=== PATIENT | male | born 1945 | race Caucasian/White ===

== ENCOUNTER → 2018-04-02 | Outpatient (CLI) | payer MEDICARE ==
[2018-04-02 12:55] LABS: Albumin 4.2 g/dL (3.5-5.0); Calcium 10.1 mg/dL (8.4-10.2); Potassium 4.9 mmol/L (3.5-5.1); Total Bilirubin 0.7 mg/dL (0.2-1.3)
== END | disposition home or self-care (01) ==
LOC: LABWHC1 11:31
PROVIDERS: ATTEND Internal Medicine Clinical Cardiac Electrophysiology
DX: E78.2 Mixed hyperlipidemia (principal); E03.9 Hypothyroidism, unspecified
CPT/HCPCS: 36415; 80053; 80061; 84443

== ENCOUNTER → 2020-08-31 | Outpatient (CLI) | payer MEDICARE ==
--- NOTE | 2020-08-31 08:14 | MR ---
EXAMINATION TYPE: MR lumbar spine wo con DATE OF EXAM: 08/31/2020 COMPARISON: NONE HISTORY: Lumbar disc disorders with radiculopathy TECHNIQUE: Multiplanar, multisequence imaging of the lumbar spine is performed without IV contrast. FINDINGS: Sagittal images of the lumbar spine show vertebral body heights to appear satisfactory. Sca ttered small Schmorl nodes. Alignment is straightened. Multilevel disc desiccation. Mild disc space n arrowing L2-L3 level and L5-S1 level. Moderate disc space narrowing L3-L4 level. Kiua-[id number]-xgyawjwc mul tilevel anterior spurring The conus medullaris is normal in position and signal ending at L1-L2 disc space. Some heterogeneous bone uptake to endplate change and anterior L3-L4 level. Axial images show the T12-L1 and L1-L2 levels to appear within normal limits. Axial images at the L2-L3 level show [id number] broad disc bulge along with mild/moderate facet arthropathy and ligamentum flavum hypertrophy right greater than left. There is effacement of the an terior and the posterior lateral thecal sac. There is mild left-sided anterior inferior neural forami nal narrowing. Axial images at the L3-L4 level show mild broad disc bulge and mild facet arthropathy. Mild effacemen t of anterior thecal sac. Mild left greater than right anterior inferior neural foraminal narrowing. Axial images at the L4-L5 level show mild/moderate facet degenerative changes bilaterally. There is m ild/moderate broad disc bulge. Patent bilateral foramina. Spinal canal preserved. Axial images at L5-S1 level show mild/moderate facet degenerative changes bilaterally. There is mild/ moderate broad disc bulge. Spinal canal is preserved. Patent bilateral neural foramina. Paraspinal muscle bulk is maintained. Some cortical thinning is felt present in both kidneys. There a re some prominent but subcentimeter left paraaortic lymph nodes. There is suspected enlarged right co mmon iliac chain 1.3 x 1.1 cm lymph node axial image 1. IMPRESSION: Straightening of lumbar spine with multilevel degenerative changes greatest mid lumbar le vels as detailed above. Slightly enlarged right common iliac chain lymph node, consider contrast-enha nced CT abdomen and pelvis to further evaluate based on clinical correlation.
== END | disposition home or self-care (01) ==
LOC: RADMRIMAIN 07:21
PROVIDERS: ATTEND Family Medicine
DX: M47.26 Other spondylosis with radiculopathy, lumbar region (principal); R59.9 Enlarged lymph nodes, unspecified; M51.16 Intervertebral disc disorders with radiculopathy, lumbar region
CPT/HCPCS: 72148

== ENCOUNTER → 2020-09-07 | Outpatient (CLI) | payer MEDICARE ==
--- NOTE | 2020-09-07 15:22 | CT ---
EXAMINATION TYPE: CT abdomen pelvis w con DATE OF EXAM: 09/07/2020 COMPARISON: None HISTORY: Inguinal lymphadenopathy. History of bladder cancer. Patient complains of low back pain. CT DLP: 1844 mGycm CONTRAST: CT scan of the abdomen and pelvis is performed with Oral Contrast and with IV Contrast, patient injec lanre with 100 mL of Isovue M300. FINDINGS: LUNG BASES-: No visible nodule. No infiltrate. LIVER/GB: No calcified gallstones. No space occupying hepatic lesion. Biliary tree is of normal ca liber. PANCREAS: No inflammation. No distinct mass. SPLEEN: No splenic enlargement. No lesion seen. ADRENALS: No nodule. No thickening. KIDNEYS/BLADDER: No hydronephrosis. Tiny 2 mm nonobstructing calculi in both kidneys. No distinct re nal mass. Urinary bladder grossly unremarkable. BOWEL: Normal appendix. Normal bowel caliber. No inflammation. GENITAL ORGANS: No gross abnormality. LYMPH NODES: No greater than 1cm abdominal or pelvic lymph nodes are appreciated. AORTA: No significant abnormality. OSSEOUS STRUCTURES: No significant abnormality is seen. OTHER: No significant additional abnormality is seen. IMPRESSION: 1. A couple subcentimeter lymph nodes are seen about the inguinal regions. No adenopathy greater than 1 cm. 2. Urinary bladder appears to be unremarkable. 3. Tiny nonobstructing renal calculi.
== END | disposition home or self-care (01) ==
LOC: RADCTMAIN 12:42
PROVIDERS: ATTEND Family Medicine
DX: N20.0 Calculus of kidney (principal)
CPT/HCPCS: 82565; 84520; 74177; 36415; Q9967 ×2